=== PATIENT | male | born 1950 | race Caucasian/White ===

== ENCOUNTER → 2017-12-15 | Outpatient (CLI) | payer MEDICARE, BC ==
--- NOTE | 2017-12-15 12:42 | SFUN ---
SLEEP CENTER FOLLOW UP NOTE DATE OF SERVICE: 12/15/2017 A 67-year-old gentleman has been followed in sleep center for treatment of obstructive sleep apnea-hypopnea syndrome. The patient is trying to use his CPAP equipment, but presently has some problem related to the mask. He is using full-face mask AirFit F10 large size and this is his preference, but with this mask he develops some itching on the skin from the mask. Mask was not changed for about one year. I checked CPAP unit. Reading cart was off. CPAP pressure is 7 cm of water. REM started from 4 cm of water. Climate control on automatic regimen. [place] Sleepiness Scale is 10. The patient describes that he has more problems with his restless legs now. He is on treatment with Mirapex 0.25 mg at bedtime and with this regimen he does not feel effect of medication as he felt it before. MEDICATIONS: Synthroid, Paxil, Mirapex. PHYSICAL EXAMINATION: During physical exam, patient in no distress. VITAL SIGNS: BP 132/77, HR 68, RR 16, height 5 feet 11 inches, weight 205.8, temperature 98.2, body mass index 28.5, oxygen saturation at room air 94%. HEENT: PERRLA, EOMI. Oropharynx low position of soft palate. NECK: Supple, no JVD. Thyroid is not palpable. LUNGS: Clear to percussion and to auscultation. Good air exchange. No wheezing or rhonchi. HEART: S1, S2 regular. No murmurs, gallops, or rubs. ABDOMEN: Soft and nontender. Bowel sounds are present. No organomegaly appreciated. EXTREMITIES: No clubbing or cyanosis. DESPATCH CLERK: Awake, alert, and oriented X3. Cranial nerves 2 to 7 intact. There is no fasciculation or atrophy. noted. No focal deficits observed. IMPRESSION: 1. Obstructive sleep apnea-hypopnea syndrome, patient benefitting from CPAP therapy. 2. Hypothyroidism. 3. Back pain. 4. Restless legs and periodic limb movements. 5. History of anxiety. PLAN: 1. Replace full face mask and all necessary supplies. 2. Patient will try additional material, which she will put between the mask and the skin. 3. We will increase dose of Mirapex to 0.375 mg at bedtime. 4. Sleep hygiene with regular time in bed for at least 8 hours. 5. No driving if feeling any sleepiness. Thank you very much for allowing me to participate in management of your patient. Sincerely, Rolando Paniagua MD, PhD, FAASM Diplomat of [employer] Power[employer] Mechanic of [facility] [place] MMODL / SIOBHANN: [id number] /
== END | disposition home or self-care (01) ==
LOC: SLEEP 11:08
PROVIDERS: ATTEND Internal Medicine
DX: G47.33 Obstructive sleep apnea (adult) (pediatric) (principal); E03.9 Hypothyroidism, unspecified; G25.81 Restless legs syndrome; G47.61 Periodic limb movement disorder; F41.9 Anxiety disorder, unspecified; Z99.89 Dependence on other enabling machines and devices; Z79.899 Other long term (current) drug therapy

== ENCOUNTER → 2019-01-18 | Outpatient (CLI) | payer MEDICARE ==
--- NOTE | 2019-01-18 17:58 | PN ---
PROGRESS NOTE DATE OF SERVICE: 01/18/2019 This patient is a 68-year-old gentleman who has been followed in the sleep center for treatment of obstructive sleep apnea-hypopnea syndrome and restless legs syndrome. Patient continues to use his CPAP equipment at night. At present he has some problems related to the mask. He already has been tried on a nasal mask, nasal pillow mask, full-face mask. His best preference is full-face mask, but he still does not feel very comfortable with this mask. He is using a Simplus large-sized full-face mask. I checked his CPAP unit. CPAP pressure is 7 cm of water. Usage is 4/30 nights for more than 4 hours. Average usage is 4.1 hours. The machine does not have information about apnea-hypopnea index. No snoring with the machine. [place] Sleepiness Scale is 3, which is normal. The patient is taking Mirapex 0.375 mg at bedtime, and at present he has started to have episodes of restless legs; also during the day while he is stretching his legs. This may indicate the possibility to augmentation. MEDICATIONS: 1. Synthroid. 2. Paxil. 3. Mirapex. PHYSICAL EXAMINATION: GENERAL: A pleasant patient in no distress. VITAL SIGNS: BP 125/82, HR 84, RR 16, height 5 feet 11 inches, weight 199, which is 6 pounds less than during his last visit. Body mass index 27.7. Temperature 98.3, oxygen saturation at room air 96%. HEENT: PERRLA, EOMI. Evaluation of oropharynx showed tongue protrudes midline. Extremely low position of soft palate. Mallampati IV. NECK: Supple. No JVD. Thyroid is not palpable. LUNGS: Clear to percussion and to auscultation. Good air exchange. No wheezing or rhonchi. HEART: S1, S2 regular. No murmurs, gallops or rubs. ABDOMEN: Soft. No tenderness. EXTREMITIES: No clubbing or cyanosis. SERVICE DELIVERY SUPERVISOR: Awake, alert, and oriented X3. Cranial nerves 2 to 7 intact. There is no fasciculation or atrophy. noted. No focal deficits observed. IMPRESSION: 1. Obstructive sleep apnea-hypopnea syndrome. The patient has some problems related to the mask fitting. He is benefitting from treatment. 2. Restless legs syndrome and periodic limb movements, on treatment with Mirapex; possibly beginning of augmentation. 3. Hypothyroidism. 4. Back problems. 5. History of anxiety. PLAN: 1. Patient will continue to use CPAP equipment every night for the whole night with the same pressure of 7 cm of water. 2. We will fit the patient with a different style of full-face mask. We will try a DreamWear mask, which is a new style, and covers the mouth and nose from below. 3. The patient will continue to take Mirapex with the same dose, 0.375 mg at bedtime. He will try to take less, 0.25 mg at bedtime. 4. Gabapentin could be considered as an additional medication in case of augmentation on dopamine agonist of restless legs; but for now, I think we could wait. 5. Precautions for driving. No driving if feeling any sleepiness. Thank you very much for allowing me to participate in the management of your patient. Sincerely, Rolando Paniagua MD, PhD, FAASM Diplomat of [employer] Electrophysiologist of [facility] [place] MMODL / SIOBHANN: [id number] /
== END | disposition home or self-care (01) ==
LOC: SLEEP 15:03
PROVIDERS: ATTEND Internal Medicine
DX: G47.33 Obstructive sleep apnea (adult) (pediatric) (principal); G25.81 Restless legs syndrome; G47.61 Periodic limb movement disorder; E03.9 Hypothyroidism, unspecified; M54.5 Low back pain; Z86.59 Personal history of other mental and behavioral disorders; Z99.89 Dependence on other enabling machines and devices; Z79.899 Other long term (current) drug therapy